=== PATIENT | male | born 1975 | race Caucasian/White ===

== ENCOUNTER → 2019-04-07 12:57 | Outpatient (POV) | payer SELFPAY | PROVIDERS: PCP Family Medicine; Visit Provider Nurse Practitioner Family | DX: Z00.00 Encounter for general adult medical examination without abnormal findings (principal) ==

== ENCOUNTER → 2019-04-07 13:26 | Outpatient (CLI) | payer BC, SELFPAY ==
[2019-04-07 14:04] LABS: Basophils % 0.6 % (0.1-2.0); Eosinophils # 0.2 K/mm3 (0.0-0.4); Eosinophils % 3.7 % (0.1-12.0); Hematocrit 41.5 % (42.0-52.0); Hemoglobin 13.4 g/dL (14.1-18.0); Lymphocytes # 1.4 K/mm3 (0.7-4.5); Lymphocytes % 22.2 % (10-50); Mean Corpuscular HGB Conc 32.4 g/dL (31.8-35.4); Mean Corpuscular Hemoglobin 27.2 pg (27.0-31.2); Mean Platelet Volume 6.8 fl (7.4-10.4); Monocytes # 0.5 K/mm3 (0.1-1.0); Monocytes % 7.8 % (1.7-9.3); Neutrophils % 65.7 % (37.0-80.0); Platelet Count 218 K/mm3 (142-424); Red Blood Count 4.94 M/mm3 (4.60-6.20); White Blood Count 6.1 K/mm3 (4.8-10.8)
[2019-04-07 14:35] LABS: Erythrocyte Sedimentation Rate 17 mm/hr (0-15)
[2019-04-07 15:04] LABS: Alanine Aminotransferase 16 U/L (12-78); Albumin Level 3.4 gm/dL (3.4-5.0); Albumin/Globulin Ratio 1.1 (1.1-1.8); Alkaline Phosphatase 149 U/L (46-116); Anion Gap 13.6 mEq/L (5-15); Aspartate Amino Transferase 15 U/L (15-37); Bilirubin,Total 0.2 mg/dL (0.2-1.0); Blood Urea Nitrogen 10 mg/dL (7-18); C-Reactive Protein < 0.2 mg/dL (0.0-0.9); Calcium 8.7 mg/dL (8.5-10.1); Carbon Dioxide 26 mmol/L (21.0-32.0); Chloride 106 mmol/L (98-107); Creatinine,Serum 1.02 mg/dL (0.70-1.30); Estimated Glomerular Filt Rate 79 ml/min (>60); Ferritin 45 ng/mL (8-388); GFR (African American) 96 ML/MIN (>60); Globulin 3.1 gm/dl (1.3-3.2); Glucose 95 mg/dL (74-106); Potassium 3.6 mmoL/L (3.5-5.1); Sodium 142 mmol/L (136-145); Total Protein,Serum 6.5 gm/dL (6.4-8.2)
[2019-04-08 08:20] LABS: Iron 36 ug/dL (38-169); UIBC 245 ug/dL (111-343)
[2019-04-08 11:08] LABS: Iron Saturation 13 % (15-55); Vitamin B12 975 pg/mL (232-1245); Vitamin D 25 Hydroxy 70.2 ng/mL (30.0-100.0)
== END ==
PROVIDERS: Visit Provider Nurse Practitioner Family
DX: K90.0 Celiac disease (principal); K50.90 Crohn's disease, unspecified, without complications; K58.9 Irritable bowel syndrome, unspecified; R14.0 Abdominal distension (gaseous); E61.1 Iron deficiency; E55.9 Vitamin D deficiency, unspecified
CPT/HCPCS: 36415; 80053; 82607; 82652; 82728; 83540; 83550; 85025; 85651; 86140

== ENCOUNTER → 2019-05-19 12:47 | Outpatient (POV) | payer BC, SELFPAY ==
--- NOTE | 2019-05-19 13:37 | XR_ITS ---
PROCEDURE: XR CHEST 2V CLINICAL HISTORY: CHROHN'S DISEASE, FATIGUE, CELIAC COMPARISON: No exams were available for comparison FINDINGS: The cardiomediastinal silhouette and pulmonary vascularity are within normal limits. No previous exam is made available for comparison. Focal increased density is present overlying the right upper lobe overlying the 1st rib anteriorly. Cannot exclude the possibility of a focal parenchymal opacity at this region. Patchy density is present in the retrocardiac region on the left most of which is likely related overlying vessels. The remaining lungs are clear. No acute bony findings. IMPRESSION: There may be some residual infiltrate in the left lung base. Summation artifact versus parenchymal opacity right upper lobe. Chest CT may be of further value if clinically desired. Dictated by: Jewel Esquivel MD 05/19/2019 16:37 Electronically signed by Jewel Esquivel MD in [place] 05/19/2019 16:37
[2019-05-19 14:08] LABS: Basophils # 0.1 K/mm3 (0-0.2); Basophils % 0.8 % (0.1-2.0); Eosinophils # 0.3 K/mm3 (0.0-0.4); Eosinophils % 4.5 % (0.1-12.0); Hematocrit 43.2 % (42.0-52.0); Hemoglobin 13.3 g/dL (14.1-18.0); Lymphocytes # 1.4 K/mm3 (0.7-4.5); Lymphocytes % 24.1 % (10-50); Mean Corpuscular HGB Conc 30.9 g/dL (31.8-35.4); Mean Corpuscular Hemoglobin 26.7 pg (27.0-31.2); Mean Corpuscular Volume 86.5 fl (80-94); Mean Platelet Volume 7.2 fl (7.4-10.4); Monocytes # 0.6 K/mm3 (0.1-1.0); Monocytes % 10.6 % (1.7-9.3); Neutrophils # 3.5 K/mm3 (1.8-7.8); Platelet Count 249 K/mm3 (142-424); Red Blood Count 4.99 M/mm3 (4.60-6.20); Red Cell Distribution Width 15.6 % (11.5-17.5); White Blood Count 5.9 K/mm3 (4.8-10.8)
[2019-05-19 15:42] LABS: Alanine Aminotransferase 9 U/L (12-78); Albumin Level 3.3 gm/dL (3.4-5.0); Alkaline Phosphatase 147 U/L (46-116); Anion Gap 12.2 mEq/L (5-15); Aspartate Amino Transferase 19 U/L (15-37); Bilirubin,Total 0.3 mg/dL (0.2-1.0); Blood Urea Nitrogen 9 mg/dL (7-18); Calcium 8.1 mg/dL (8.5-10.1); Carbon Dioxide 29 mmol/L (21.0-32.0); Chloride 105 mmol/L (98-107); Creatinine,Serum 0.85 mg/dL (0.70-1.30); Estimated Glomerular Filt Rate 98 ml/min (>60); GFR (African American) 118 ML/MIN (>60); Globulin 3.3 gm/dl (1.3-3.2); Glucose 82 mg/dL (74-106); Potassium 4.2 mmoL/L (3.5-5.1); Sodium 142 mmol/L (136-145); Total Protein,Serum 6.6 gm/dL (6.4-8.2)
[2019-05-21 20:21] LABS: Tissue Transglutaminase IgA Ab >100 U/mL (0-3)
== END ==
PROVIDERS: PCP Family Medicine; Visit Provider Nurse Practitioner Family
DX: K50.90 Crohn's disease, unspecified, without complications (principal); R53.83 Other fatigue; K90.0 Celiac disease
CPT/HCPCS: 36415; 71046; 80053; 83516; 85025

== ENCOUNTER → 2019-07-07 13:04 | Outpatient (POV) | payer SELFPAY | PROVIDERS: PCP Family Medicine; Visit Provider Nurse Practitioner Family | DX: Z00.00 Encounter for general adult medical examination without abnormal findings (principal) ==

== ENCOUNTER → 2019-10-13 14:30 | Outpatient (CLI) | payer BC, SELFPAY ==
[2019-10-13 14:59] LABS: Basophils % 0.3 % (0.1-2.0); Eosinophils # 0.1 K/mm3 (0.0-0.4); Eosinophils % 1.6 % (0.1-12.0); Hemoglobin 14.3 g/dL (14.1-18.0); Lymphocytes # 2.4 K/mm3 (0.7-4.5); Lymphocytes % 31.7 % (10-50); Mean Corpuscular HGB Conc 34.1 g/dL (31.8-35.4); Mean Corpuscular Hemoglobin 28.6 pg (27.0-31.2); Mean Corpuscular Volume 83.9 fl (80-94); Mean Platelet Volume 7.4 fl (7.4-10.4); Monocytes # 0.7 K/mm3 (0.1-1.0); Monocytes % 9.5 % (1.7-9.3); Neutrophils # 4.3 K/mm3 (1.8-7.8); Neutrophils % 56.8 % (37.0-80.0); Platelet Count 225 K/mm3 (142-424); Red Blood Count 5.01 M/mm3 (4.60-6.20); Red Cell Distribution Width 13.5 % (11.5-17.5); White Blood Count 7.6 K/mm3 (4.8-10.8)
[2019-10-13 15:43] LABS: Erythrocyte Sedimentation Rate 10 mm/hr (0-15)
[2019-10-13 17:21] LABS: Alanine Aminotransferase 17 U/L (12-78); Albumin Level 4.4 g/dl (3.5-5.0); Albumin/Globulin Ratio 1.5 (1.1-1.8); Alkaline Phosphatase 123 U/L (38-126); Anion Gap 12.9 mEq/L (5-15); Aspartate Amino Transferase 31 U/L (17-59); Bilirubin,Total 0.3 mg/dl (0.2-1.3); Blood Urea Nitrogen 20 mg/dl (9-20); Calcium 9.4 mg/dl (8.4-10.2); Carbon Dioxide 28 mmol/L (22.0-30.0); Chloride 102 mmol/L (98-107); Estimated Glomerular Filt Rate 105 ml/min (>60); GFR (African American) 127 ML/MIN (>60); Glucose 100 mg/dl (74-100); Potassium 3.9 mmoL/L (3.5-5.1); Sodium 139 mmol/L (136-145); Total Protein,Serum 7.4 g/dl (6.3-8.2)
[2019-10-13 17:26] LABS: C-Reactive Protein 2.3 mg/L (0-4)
[2019-10-13 19:57] LABS: Ferritin 151 ng/ml (17.9-464)
[2019-10-15 12:18] LABS: Iron 92 ug/dL (38-169); UIBC 202 ug/dL (111-343)
[2019-10-15 16:13] LABS: Iron Saturation 31 % (15-55); Vitamin B12 907 pg/mL (232-1245); Vitamin D 25 Hydroxy 35.3 ng/mL (30.0-100.0)
== END ==
PROVIDERS: Visit Provider Nurse Practitioner Family
DX: K90.0 Celiac disease (principal); K50.90 Crohn's disease, unspecified, without complications
CPT/HCPCS: 36415; 80053; 82607; 82652; 82728; 83540; 83550; 85025; 85651; 86140

== ENCOUNTER → 2019-10-13 14:35 | Outpatient (POV) | payer BC, SELFPAY | PROVIDERS: PCP Nurse Practitioner Family; Visit Provider Nurse Practitioner Family | DX: Z00.00 Encounter for general adult medical examination without abnormal findings (principal) ==

== ENCOUNTER → 2021-02-28 12:44 | Outpatient (POV) | payer BC, SELFPAY | PROVIDERS: Visit Provider Nurse Practitioner Family | DX: Z00.00 Encounter for general adult medical examination without abnormal findings (principal) ==